=== PATIENT | female | born 1990 | race Caucasian/White ===

== ENCOUNTER → 2016-10-30 | Outpatient (CLI) | payer BC ==
[2016-10-30 17:21] LABS: CH 29.1; CHCM 33.7; HCT 35.5 % (34.0-46.0); HDW 2.93; MCH 29.4 pg (25.0-35.0); MCHC 33.9 g/dL (31.0-37.0); MCV 86.5 fL (80.0-100.0); Mean Platelet Volume 6.6; RDW 14.8 % (11.5-15.5); WBC 7.5 k/uL (3.8-10.6)
[2016-10-30 17:27] LABS: Glucose 86 mg/dL (74-99); Non-African American GFR(MDRD) >60 (>60 ml/min/1.73 sqM)
[2016-10-30 17:59] LABS: Hepatitis B Surface Ag Index 0.07
[2016-10-31 07:45] LABS: HIV-1/HIV-2 Ab Screen NONREAC (NON REAC)
--- NOTE | 2016-10-31 08:20 | US ---
EXAMINATION TYPE: US OB <= 14 wk fetus DATE OF EXAM: 10/30/2016 4:42 PM COMPARISON: NONE CLINICAL HISTORY: Z36 Comfirm Dates. EXAM PERFORMED: Transabdominal (TA) EXAM MEASUREMENTS: GESTATIONAL AGE / DATING Physician Established: not yet established Dates by LMP: (10 weeks/3 days) EDC: 05/25/17 Dates by First Scan: 1st scan today Dates by Current Scan for: (11 weeks/2 days) EDC: 05/19/17 MATERNAL ANATOMY Uterus: 12.6 x 6.6 x 9.4cm Right Ovary: not visualized Left Ovary: not visualized Post CDS / Adnexa: wnl GESTATION / SURVEY CRL: 4.5 (11 weeks/2 days) Yolk Sac (normal less than 6mm): 4mm Heart Rate: 170 bpm Rhythm: Normal IUP: Viable IUP Nuchal Translucency 10-14wks (normal less than 3mm): 1mm Date of LMP: 08/18/16 TECHNOLOGIST IMPRESSION: normal IUP IMPRESSION: Single viable intrauterine corresponding to ultrasound age of 11 weeks 2 days with estimate d date of delivery 19 May 2017
== END | disposition home or self-care (01) ==
LOC: RADUSWWP 16:16
PROVIDERS: ATTEND Obstetrics & Gynecology
DX: Z36 Encounter for antenatal screening of mother (principal); Z34.01 Encounter for supervision of normal first pregnancy, first trimester; Z3A.11 11 weeks gestation of pregnancy
CPT/HCPCS: 36415; 76801; 76813; 82565; 82947; 85027; 86762; 86780; 86850; 86900; 86901; 87340; 87389

== ENCOUNTER → 2016-11-14 | Outpatient (CLI) | payer BC ==
--- NOTE | 2016-11-14 17:36 | US ---
EXAMINATION TYPE: US OB <= 14 wk fetus DATE OF EXAM: 11/14/2016 5:06 PM COMPARISON: on PACS CLINICAL HISTORY: O76 abnormal or absent heart sounds. Unable to hear FHT's in office EXAM PERFORMED: Transabdominal (TA) EXAM MEASUREMENTS: GESTATIONAL AGE / DATING Physician Established: (13 weeks/4 days) EDC: 05/18/2017 Dates by Current Scan for: (13 weeks/3 days) EDC: 05/19/2017 MATERNAL ANATOMY Uterus: 15.0 x 9.9 x 8.0 cm Right Ovary: not seen due to overlying bowel Left Ovary: not seen due to overlying bowel Post CDS / Adnexa: no free fluid Presence of subchorionic bleed: no GESTATION / SURVEY CRL: 7.3 (13 weeks/3 days) MSD: not measured Yolk Sac (normal less than 6mm): not seen Heart Rate: 153 bpm Rhythm: Normal IUP: Viable IUP Nuchal Translucency 10-14wks (normal less than 3mm): 1.4 mm Live single IUP measuring 13 weeks 3 days with positive FHT's measuring 153 bpm IMPRESSION: The ultrasound gestational age is 13 weeks 3 days. There is satisfactory growth compared to 10/30/2016 . I see no complicating process.
== END | disposition home or self-care (01) ==
LOC: RADUSMAIN 16:37
PROVIDERS: ATTEND Obstetrics & Gynecology
DX: O76 Abnormality in fetal heart rate and rhythm complicating labor and delivery (principal); Z3A.13 13 weeks gestation of pregnancy
CPT/HCPCS: 76801; 76813

== ENCOUNTER → 2016-12-20 | Outpatient (CLI) | payer BC ==
[2016-12-21 11:23] LABS: Alpha Fetoprotein 61.8 ng/mL; B-HCG (M.O.M.) 1.38; Gestational Age (days) 4; Human Chorionic Gonadotropin 31.3 IU/mL; Inhibin A (M.O.M.) 1.06; Interpretation SeeBelow; Maternal Age at EDD (Yrs) 29
== END ==
LOC: LABWHC1 17:07
PROVIDERS: ATTEND Obstetrics & Gynecology
DX: Z34.01 Encounter for supervision of normal first pregnancy, first trimester (principal); Z3A.00 Weeks of gestation of pregnancy not specified
CPT/HCPCS: 36415; 82105; 82677; 84702; 86336

== ENCOUNTER → 2017-02-20 | Outpatient (CLI) | payer BC ==
[2017-02-20 09:43] LABS: CH 30.9; CHCM 34.4; HCT 35.4 % (34.0-46.0); HDW 3.46; HGB 12.3 gm/dL (11.4-16.0); MCH 31.4 pg (25.0-35.0); MCHC 34.7 g/dL (31.0-37.0); MCV 90.5 fL (80.0-100.0); Mean Platelet Volume 6.8; Poikilocytosis Slight; RBC 3.91 m/uL (3.80-5.40); RDW 14.5 % (11.5-15.5); WBC 7.5 k/uL (3.8-10.6)
== END | disposition home or self-care (01) ==
LOC: LABWHC1 08:09
PROVIDERS: ATTEND Obstetrics & Gynecology
DX: Z34.02 Encounter for supervision of normal first pregnancy, second trimester (principal)
CPT/HCPCS: 36415; 82950; 84439; 84443; 85027

== ENCOUNTER 2017-04-16 10:43 | Outpatient (CLI) | payer BC ==
[2017-04-16 10:58] VITALS: BP 121/64; PULSE 82; RESP 16; TEMP 97.9
--- NOTE | 2017-04-16 12:32 | US ---
EXAMINATION TYPE: US OB >= 14 wk fetus DATE OF EXAM: 04/16/2017 COMPARISON: 11/14/2016 CLINICAL HISTORY: Spotting, cramping TECHNIQUE: Transabdominal (TA) GESTATIONAL AGE / DATING Physician Established: (35 weeks/0 days) EDC: 05/21/2017 Dates by LMP: (35 weeks/0 days) EDC: 05/21/2017 Dates by First Scan: (35 weeks/2 days) EDC: 05/19/2017 Dates by Current Scan: (35 weeks/0 days) EDC: 05/21/2017 SURVEY IUP: Single PLACENTA: Anterior PREVIA: No Previa BLANCA: 13.3 cm Normal CERVICAL LENGTH (transabdominal: norm > 3.0cm): 3.8 cm BIOMETRY PRESENTATION: Vertex LIE: Longitudinal BPD: 8.46 cm 34 weeks / 1 days HC: 32.0 cm 36 weeks / 1 days AC: 31.5 cm 35 weeks / 3 days FL: 6.8 cm 35 weeks / 1 days ESTIMATED WEIGHT IN GRAMS: 2638 grams ESTIMATED WEIGHT IN LBS/OZS: 5 lbs. 13 oz. WEIGHT PERCENTAGE BASED ON ESTABLISHED DATES: 55.1% HC/AC: 1.02 Normal FL/AC: 21.71 Normal HEART RATE: 132 bpm RHYTHM: Normal Viable IUP, measurements congruent with dates. anatomy assessment not provided due to advanced gestational age. IMPRESSION: Viable IUP, measurements congruent with dates.
--- NOTE | 2017-04-16 17:45 | P.MSEPDOC ---
Presenting Problems - Arrival Data Date of Arrival on Unit: 04/16/17 Time of Arrival on Unit: 10:40 Mode of Transport: Portable - Complaint OB-Reason for Admission/Chief Complaint: Vaginal Bleeding Comment: spotting and cramping at 0000 last night Medical History - Information : 1 Para: 0 Term: 0 : 0 Abortions: Spontaneous or Elective: 0 Number of Living Children: 0 - Gestational Age Expected Date of Delivery: 05/21/17 Gestational Age by PETER (wks/days): 35 Weeks and 0 Days Review of Systems - Review of Systems Constitutional: No problems Breast: No problems ENT: No problems Cardiovascular: No problems Respiratory: No problems Gastrointestinal: No problems Genitourinary: No problems Musculoskeletal: No problems Neurological: No problems Skin: No problems Vital Signs - Temperature Temperature: 97.9 F Temperature Source: Temporal Artery Scan - Pulse Right Sitting Brachial Pulse Rate: 82 Pulse Assessment Method: Automatic Cuff - Respirations Respiratory Rate: 16 Oxygen Delivery Method: Room Air O2 Sat by Pulse Oximetry: 98 - Blood Pressure Right Arm Sitting Blood Pressure: 121/64 Blood Pressure Mean: 83 Blood Pressure Source: Automatic Cuff Medical Screen Scoring (Pre) - Cervical Exam Dilation: Exam Deferred Effacement: Exam Deferred - Uterine Contractions Frequency: N/A Duration: N/A Intensity: N/A - Maternal Vital Signs Maternal Temperature: N/A Maternal Blood Pressure: N/A Signs of Preeclampsia: N/A Maternal Respirations: N/A - Maternal Trauma Maternal Trauma: N/A - Assessment Baseline FHR: 130 Heart Rate - NICHD Category: Category I (Normal) = 0 Position: N/A Station: N/A - Total Score Total Score (Pre): 0 - Level of Risk Level of Risk: Low (0-5) Physician Notification (Post) - Physician Notified Physician Notified Date: 04/16/17 Physician Notified Time: 12:15 Physician/Practitioner Notified:: dr Charles New Order Received: Yes - Notification Comment Comment: ultrasound results reported. discharge home and follow up as scheduled. Disposition - Disposition OB Disposition: Discharge to home Discharge Date: 04/16/17 Discharge Time: 12:33 I agree with the RN Medical Screening Exam: Yes Physician's MSE Comment: Patient had no bleeding noted on speculum exam per RN. Patient also did not have any evidence of abruption on her ultrasound. No evidence of maternal or compromise. Will be discharged home follow up with me in 48 hours. Risk & Benefit of care provided described in d/c instruction: Yes Diagnosis: SPOTTING COMPLICATING , THIRD TRIMESTER
== END 2017-04-16 12:33 | disposition home or self-care (01) ==
LOC: FBPOP 10:43
PROVIDERS: ATTEND Obstetrics & Gynecology
DX: O26.853 Spotting complicating pregnancy, third trimester (principal); Z3A.35 35 weeks gestation of pregnancy
CPT/HCPCS: 59025; 76805; 99215

== ENCOUNTER 2017-05-20 16:20 | Inpatient (IN) | payer BC ==
[2017-05-20] MEDS ORDERED: DINOPROSTONE 10 MG INSERT.ER VAGINAL ONE (16:23)
[2017-05-20 16:45] VITALS: BMI 28.0
[2017-05-20] MEDS ORDERED: BUTORPHANOL 1 MG/ML 1 ML VIAL IV PRN (17:24)
--- NOTE | 2017-05-20 17:33 | P.HPOB ---
History of Present Illness H&P Date: 05/20/17 Chief Complaint: Elective induction of labor. This patient is a pleasant 27-year-old 1 para 0 female estimated date of confinement 05/21/2017 estimated gestational age 39-6/7 weeks who presents to labor and delivery for requested induction of labor. Patient's cervix is unfavorable and at this time we discussed options and she is requested two- stage induction of labor. Patient's care has been uncomplicated with the exception of significant lower back pain. Review of Systems Constitutional: Denies chills, Denies fever Ears, nose, mouth and throat: Denies headache, Denies sore throat Cardiovascular: Denies chest pain, Denies shortness of breath Respiratory: Denies cough Gastrointestinal: Reports heartburn Genitourinary: Reports pelvic pain, Reports Menstruation: Reports amenorrhea Musculoskeletal: Denies myalgias Neurological: Denies numbness, Denies weakness Past Medical History Past Medical History: No Reported History History of Any Multi-Drug Resistant Organisms: None Reported Past Surgical History: No Surgical Hx Reported Past Anesthesia/Blood Transfusion Reactions: No Reported Reaction Past Psychological History: No Psychological Hx Reported Smoking Status: Never smoker Past Alcohol Use History: None Reported Past Drug Use History: None Reported - Past Family History Father Family Medical History: Hypertension Mother Family Medical History: Hyperlipidemia Medications and Allergies Home Medications Medication Instructions Recorded Confirmed Type Pnv No.95/Ferrous Fum/Folic AC 1 each PO DAILY 04/16/17 05/20/17 History [ Multivitamin Tablet] Allergies Allergy/AdvReac Type Severity Reaction Status Date / Time No Known Allergies Allergy Verified 04/16/17 10:47 Exam - Vital Signs Vital signs: Vital Signs Temp Pulse Resp BP Pulse Ox 05/20/17 16:30 97.3 F L 80 16 125/73 97 Intake and Output 05/20/17 05/20/17 05/20/17 06:59 14:59 22:59 Other: Weight 78.925 kg Patient Weight 05/21/17 06:59 Weight 78.925 kg - OBG Physical Exam Abdomen: bowel sounds normal, no diffuse tenderness, no bruit present, no guarding noted, no hepatomegaly, no splenomegaly, no mass Vulva: both: normal Cervix: no lesion (Cervix is fingertip and thick.), no discharge Uterus: enlarged (Fundal height is 38 cm.) Results blood work shows she is O positive, rubella immune, RPR nonreactive, HIV nonreactive, hepatitis B is negative, Glucola was normal, group B strep was negative, ultrasounds have been normal, quad screen was negative as well. Assessment and Plan (1) Third trimester Narrative/Plan: This patient is a pleasant 27-year-old 1 para 0 female 39-6/7 weeks gestation who presents to labor and delivery for requested induction of labor. Due to the unfavorable cervix plan is to proceed with Cervidil induction area and patient does understand this slightly increases her risk of section and wishes to proceed. Status: Acute (2) Elective induction of labor planned Status: Acute
[2017-05-21] MEDS ORDERED: OXYTOCIN 10 UNIT/ML 1 ML VIAL IM PRN ×2 (03:42→05:02)
[2017-05-21 04:13] LABS: Basophils % (A) 0 %; CH 33.6; CHCM 36.3; Eosinophils # (A) 0.1 k/uL (0-0.7); Eosinophils % (A) 1 %; HCT 39.8 % (34.0-46.0); HDW 3.18; HGB 13.4 gm/dL (11.4-16.0); Luc # (Auto) 0.15; Luc % (Auto) 2; Lymphocytes # (A) 1.7 k/uL (1.0-4.8); Lymphocytes % (A) 18 %; MCH 31.5 pg (25.0-35.0); MCHC 33.7 g/dL (31.0-37.0); MCV 93.4 fL (80.0-100.0); Mean Platelet Volume 7.4; Monocytes # (A) 0.5 k/uL (0-1.0); Monocytes % (A) 6 %; Neutrophils % (A) 74 %; RBC 4.26 m/uL (3.80-5.40); RDW 15.9 % (11.5-15.5); WBC 9.4 k/uL (3.8-10.6); WBC (Perox) 9.51
[2017-05-21] MEDS ORDERED: TERBUTALINE 1 MG/ML VIAL SQ PRN (05:02)
[2017-05-21] MEDS ORDERED: CARBOPROST TROMETHAMINE 250 MCG/ML 1 ML AMP IM PRN (05:02)
[2017-05-21] MEDS ORDERED: OXYTOCIN 20 UNITS/1000 ML NS 1,000 ML IV SCH (05:02)
[2017-05-21] MEDS ORDERED: METHYLERGONOVINE 0.2 MG/ML 1 ML AMP IM PRN (05:02)
[2017-05-21] MEDS ORDERED: LIDOCAINE 1% (PF) 10 MG/ML (30 ML SDV) SQ PRN (05:02)
[2017-05-21] MEDS: LACTATED RINGERS 1,000 ML IV SCH ×3 (05:37→07:10)
[2017-05-21] MEDS ORDERED: fentaNYL (PF) 50 MCG/ML 5 ML AMP ONE (06:23)
[2017-05-21] MEDS ORDERED: SODIUM CHLORIDE 0.9% 100 ML BAG ONE (06:23)
[2017-05-21] MEDS ORDERED: BUPIVACAINE (PF) 0.25% 30 ML VIAL ONE (06:23)
[2017-05-21] MEDS ORDERED: BUPIVACAINE (PF) 0.25% 25 ML, fentaNYL (PF) 200 MCG in SODIUM CHLORIDE 0.9% 71 ML EPIDURAL ONE (06:41)
[2017-05-21] MEDS: PRENATAL VIT-IRON-FOLIC ACID 1 EACH CAP PO SCH (10:30)
--- NOTE | 2017-05-21 12:33 | P.PROBDLV ---
Vaginal Delivery Note - . Vaginal Delivery Note: Normal vaginal delivery viable female Apgars 8 and 9 delivery time is 0954 hrs. Please see dictated H&P for intimate details of this patient's admission. Brief summary is a pleasant 27-year-old 1 para 0 female 40-0/7 weeks gestation to labor and delivery requesting induction of labor. Patient has Cervidil placed last evening and she was 2-3 cm dilated this morning. Patient had artificial rupture membranes for clear fluid. Labor is induced with Pitocin and she does get an epidural for pain control. Labor progresses quickly and she pushes for approximately 20-30 minutes pushes the head to the perineum. After perineum is instructed 1% lidocaine and a midline episiotomy is made. We then have controlled delivery of the 's head over the perineum. Mouth and nares are bulb suctioned and there is no evidence of a nuchal cord. We then have deliver the anterior and posterior shoulder and rest this infant's body. This is a vigorous viable female infant Apgars are 8 and 9 delivery time was 0954 hours. After delivery of the infant the umbilical cords doubly clamped and cut appears to be trivascular. The placenta is then spontaneously delivered intact. Estimated blood loss is about 100 mL. Second- degree midline laceration is repaired with 3-0 Vicryl usual fashion in good reapproximation is noted. Counts are correct 3. There are no complications. and mother are stable delivery room.
[2017-05-21] MEDS ORDERED: IBUPROFEN 600 MG TAB PO PRN (20:05)
[2017-05-21] MEDS ORDERED: SENNOSIDES-DOCUSATE SODIUM 1 EACH TAB PO PRN (20:09)
--- NOTE | 2017-05-22 06:47 | P.PNOBGVD ---
Subjective - Subjective Patient reports: Reports appetite normal, Reports voiding normally, Reports pain well controlled, Reports ambulating normally : doing well Objective - Latest Vital Signs Latest vital signs: Vital Signs Temp Pulse Pulse Resp BP BP 05/21/17 16:00 98.3 F 64 16 136/89 05/21/17 12:15 71 16 165/85 05/21/17 11:45 65 16 157/76 05/21/17 11:15 76 16 159/77 05/21/17 11:00 76 16 160/77 05/21/17 10:45 75 16 159/84 05/21/17 10:30 76 16 159/80 05/21/17 10:15 81 81 16 167/85 Intake and Output 05/21/17 05/21/17 05/22/17 14:59 22:59 06:59 Intake Total 512.45 Output Total 100 Balance 412.45 Intake: Intake, IV Titration 512.45 Amount Oxytocin 20 Units/1000 ml 512.45 Ns 1,000 ml @ 1 MILLIUNIT/MIN 3 mls/hr IV .Q24H NELI Rx#:[id number] Output: Estimated Blood Loss 100 Other: # Voids 2 1 - Exam Lungs: bilateral: normal Chest: Normal S1, Normal S2 Extremities: Present: normal Abdomen: Present: normal appearance, soft Uterus: Present: normal, firm Assessment and Plan (1) Third trimester Narrative/Plan: day #1. Patient is resting without complaints and wishes to go home. Vital signs are stable and she is afebrile. Uterus is firm nontender she 's having normal lochia. My impression is a normal course. Plan is to continue routine care discharge home later today. Current Visit: Yes Status: Acute Code(s): Z34.93 - ENCNTR FOR SUPRVSN OF NORMAL PREG, UNSP, THIRD TRIMESTER SNOMED Code(s): 87395835 (2) Elective induction of labor planned Current Visit: Yes Status: Acute Code(s): FGN7833 - SNOMED Code(s): 013847243
--- NOTE | 2017-05-22 06:49 | P.DS ---
Providers Date of admission: 05/20/17 16:20 Expected date of discharge: 05/22/17 Attending physician: Prakash Charles Primary care physician: Stated None - Discharge Diagnosis(es) (1) Third trimester Current Visit: Yes Status: Acute (2) Elective induction of labor planned Current Visit: Yes Status: Acute Hospital Course: Please see dictated H&P for intimate details of this patient's admission. Brief summary is a pleasant 27-year-old 1 para 0 female 40 weeks gestation admitted for Cervidil induction of labor. Patient is admitted does go on to have a vaginal delivery viable female infant. Please see dictated delivery note. day #1 patient is without complaints wishes to go home discharge home follow up with me in 6 weeks. Procedures: Induction of labor and normal vaginal delivery Patient Condition at Discharge: Good Plan - Discharge Summary New Discharge Prescriptions: New Ibuprofen [Motrin] 600 mg PO QID PRN #40 tab PRN Reason: Moderate Pain No Action Pnv No.95/Ferrous Fum/Folic AC [ Multivitamin Tablet] 1 each PO DAILY Discharge Medication List Pnv No.95/Ferrous Fum/Folic AC [ Multivitamin Tablet] 1 each PO DAILY [History] Ibuprofen [Motrin] 600 mg PO QID PRN #40 tab 05/22/17 [Rx] Follow up Appointment(s)/Referral(s): Prakash Charles MD [STAFF PHYSICIAN] - 07/02/17 9:45 am Patient Instructions/Handouts: Vaginal Delivery (DC) Activity/Diet/Wound Care/Special Instructions: No intercourse or anything per vagina for 6 weeks. Please call if any fever, chills, excessive vaginal bleeding, and/or abdominal pain. Discharge Disposition: HOME SELF-CARE
[2017-05-22 09:50] VITALS: BP 122/67; PULSE 66; RESP 18; TEMP 98
[2017-05-22] MEDS: PRENATAL VIT-IRON-FOLIC ACID 1 EACH CAP PO SCH (11:43)
== END 2017-05-22 12:44 | disposition home or self-care (01) | DRG 775 ==
LOC: 4FBP 16:20
PROVIDERS: ADMIT Obstetrics & Gynecology; ATTEND Obstetrics & Gynecology
PROC: 3E033VJ Introduction of Other Hormone into Peripheral Vein, Percutaneous Approach (ICD-10-PCS; principal; 2017-05-20)
PROC: 3E0R3BZ Introduction of Anesthetic Agent into Spinal Canal, Percutaneous Approach (ICD-10-PCS; principal; 2017-05-20)
PROC: 10907ZC Drainage of Amniotic Fluid, Therapeutic from Products of Conception, Via Natural or Artificial Opening (ICD-10-PCS; principal; 2017-05-20)
PROC: 00HU33Z Insertion of Infusion Device into Spinal Canal, Percutaneous Approach (ICD-10-PCS; principal; 2017-05-20)
PROC: 3E0P7GC Introduction of Other Therapeutic Substance into Female Reproductive, Via Natural or Artificial Opening (ICD-10-PCS; principal; 2017-05-20)
PROC: 0W8NXZZ Division of Female Perineum, External Approach (ICD-10-PCS; 2017-05-21)
PROC: 10E0XZZ Delivery of Products of Conception, External Approach (ICD-10-PCS; 2017-05-21)
PROC: 0KQM0ZZ Repair Perineum Muscle, Open Approach (ICD-10-PCS; 2017-05-21)
DX: O70.1 Second degree perineal laceration during delivery (principal); Z37.0 Single live birth; O48.0 Post-term pregnancy; Z3A.40 40 weeks gestation of pregnancy; Z3A.39 39 weeks gestation of pregnancy
CPT/HCPCS: 85025; 88307

== ENCOUNTER 2020-03-17 10:28 | Inpatient (IN) | payer BC ==
--- NOTE | 2020-03-23 19:22 | P.HPOB ---
History of Present Illness H&P Date: 03/23/20 Chief Complaint: Postdates induction of labor This patient is a pleasant 30 yr female EDC 03/17/2020 estimated gestational age 41 weeks who presents for induction secondary to post dates. care has been uncomplicated. evaluation and testing has been normal. Review of Systems Genitourinary: Reports Menstruation: Reports amenorrhea Past Medical History Past Medical History: No Reported History Additional Past Medical History / Comment(s): 1st was 7# baby girl. History of Any Multi-Drug Resistant Organisms: None Reported Past Surgical History: No Surgical Hx Reported Past Anesthesia/Blood Transfusion Reactions: No Reported Reaction Past Psychological History: No Psychological Hx Reported Smoking Status: Never smoker Past Alcohol Use History: None Reported Past Drug Use History: None Reported - Past Family History Father Family Medical History: Hypertension Mother Family Medical History: Hyperlipidemia Medications and Allergies Home Medications Medication Instructions Recorded Confirmed Type Pnv No.95/Ferrous Fum/Folic AC 1 each PO DAILY 04/16/17 05/20/17 History [ Multivitamin Tablet] Ibuprofen [Motrin] 600 mg PO QID PRN #40 tab 05/22/17 Rx Allergies Allergy/AdvReac Type Severity Reaction Status Date / Time No Known Allergies Allergy Verified 06/04/19 09:51 Exam - OBG Physical Exam Abdomen: bowel sounds normal, no diffuse tenderness, no bruit present, no guarding noted, no hepatomegaly, no splenomegaly, no mass Vulva: both: normal Vagina: normal moisture, no discharge Cervix: no lesion (Cx is 3 cm in the office), no discharge Uterus: enlarged (Fundal height is 39 cm.) Results bloodwork: O positive, Rubella Immune, RPR-HepB neg, QUAD screen negative, GBS negative, Ultrasounds have been normal. Glucola 119 Assessment and Plan Assessment: This is a pleasant 30 yr old female estimated gestational age 41 weeks who presents to L&D for postdates induction of labor. Plan is induction of labor and anticipate . (1) 41 weeks gestation of Status: Acute Code(s): Z3A.41 - 41 WEEKS GESTATION OF SNOMED Code(s): 65714078 (2) Elective induction of labor planned Status: Acute Code(s): FCN1456 - SNOMED Code(s): 246604884
[2020-03-24] MEDS ORDERED: OXYTOCIN 30 UNITS/500 ML NS 30 UNIT in SALINE 1 500ML.BAG IV SCH (05:57)
[2020-03-24] MEDS ORDERED: CARBOPROST TROMETHAMINE 250 MCG/ML 1 ML AMP IM PRN (05:57)
[2020-03-24] MEDS ORDERED: METHYLERGONOVINE 0.2 MG/ML 1 ML AMP IM PRN (05:57)
[2020-03-24] MEDS ORDERED: LIDOCAINE 0.5% (PF) 5 MG/ML (50 ML SDV) SQ PRN (05:57)
[2020-03-24] MEDS ORDERED: OXYTOCIN 10 UNIT/ML 1 ML VIAL IM PRN (05:57)
[2020-03-24] MEDS ORDERED: TERBUTALINE 1 MG/ML VIAL SQ PRN (05:57)
[2020-03-24] MEDS: LACTATED RINGERS 1,000 ML IV SCH ×2 (06:12→08:48)
[2020-03-24 06:16] LABS: Basophils % (A) 0 %; Eosinophils # (A) 0.2 k/uL (0-0.7); Eosinophils % (A) 2 %; HCT 41.6 % (34.0-46.0); HGB 14.4 gm/dL (11.4-16.0); Lymphocytes # (A) 1.8 k/uL (1.0-4.8); Lymphocytes % (A) 20 %; MCH 32.7 pg (25.0-35.0); MCHC 34.6 g/dL (31.0-37.0); MCV 94.5 fL (80.0-100.0); Mean Platelet Volume 7.6; Monocytes # (A) 0.4 k/uL (0-1.0); Monocytes % (A) 5 %; Neutrophils # (A) 6.5 k/uL (1.3-7.7); Neutrophils % (A) 72 %; Platelet Count 244 k/uL (150-450); RDW 13.4 % (11.5-15.5)
[2020-03-24] MEDS ORDERED: ROPIVACAINE 5MG/ML 20ML VIAL ONE (08:47)
[2020-03-24] MEDS ORDERED: fentaNYL (PF) 50 MCG/ML 5 ML AMP ONE (08:47)
[2020-03-24] MEDS ORDERED: SODIUM CHLORIDE 0.9% 100 ML BAG ONE (08:47)
[2020-03-24] MEDS ORDERED: diphenhydrAMINE 50 MG/ML 1 ML VIAL IVP PRN (11:29)
[2020-03-24] MEDS ORDERED: bisacodyL 10 MG SUPP RECTAL PRN (11:29)
[2020-03-24] MEDS ORDERED: IBUPROFEN 600 MG TAB PO PRN (11:29)
[2020-03-24] MEDS ORDERED: diphenhydrAMINE 25 MG CAP PO PRN (11:29)
[2020-03-24] MEDS ORDERED: BENZOCAINE/MENTHOL SPRAY 1 GM/SPRAY AEROSOL TOPICAL PRN (11:29)
[2020-03-24] MEDS ORDERED: LANOLIN CREAM 5 GM TUBE TOPICAL PRN (11:29)
[2020-03-24] MEDS ORDERED: HYDROCORTISONE 2.5% RECTAL CREAM 30 GM TUBE RECTAL PRN (11:29)
[2020-03-24] MEDS ORDERED: OXYTOCIN 20 UNITS/1000 ML NS 1,000 ML IV SCH (11:29)
[2020-03-24] MEDS ORDERED: ZOLPIDEM 5 MG TAB PO PRN (11:29)
[2020-03-24] MEDS ORDERED: SIMETHICONE 80 MG CHEWABLE PO PRN (11:29)
[2020-03-24] MEDS ORDERED: ACETAMINOPHEN TAB 325 MG TAB PO PRN (11:29)
[2020-03-24] MEDS: SENNOSIDES-DOCUSATE SODIUM 1 EACH TAB PO SCH ×2 (12:13→19:59)
--- NOTE | 2020-03-24 18:16 | P.PROBDLV ---
Vaginal Delivery Note - . Vaginal Delivery Note: Normal vaginal delivery viable female Apgars 9 and 9 delivery time is 1122 hrs. Please see dictated H&P for intimate details of this patient's admission. Brief summary this is a pleasant 30-year-old 2 para 1 female 41-0/7 weeks gestation who is admitted to labor and delivery for postdates induction of labor. On admission patient is approximately 3 cm dilated has artificial rupture membranes for light meconium-stained fluid. heart tones are c ategory 1. Labor is induced with Pitocin per protocol. Patient's labor progresses and she does get an epidural for pain control. She gets to complete pushes the head to the perineum. Posterior perineum is supported and we have controlled delivery of the infant's head over the intact perineum. Mouth and nares are bulb suctioned. Of note the sample tester is present for delivery secondary to meconium. With gentle downward traction we then have deliver the anterior and posterior shoulder and rest this 's body. This is a vigorous viable female infant Apgars are 9 and 9 delivery time is 1122 hrs. is late on the mother's abdomen. After the umbilical cord is done pulsating is then doubly clamped and cut. It appears to be trivascular. The placenta is then spontaneously delivered intact. Estimated blood loss is approximately 100 mL. Inspection of the perineum shows a first-degree posterior laceration is repaired with 3-0 Vicryl in the usual fashion excellent reapproximation is noted. All counts correct 3. There are no complications. Infant and mother are stable delivery room.
[2020-03-25 04:04] VITALS: PULSE 70
--- NOTE | 2020-03-25 06:20 | P.PNOBGVD ---
Subjective - Subjective Patient reports: Reports appetite normal, Reports voiding normally, Reports pain well controlled, Reports ambulating normally : doing well Objective - Latest Vital Signs Latest vital signs: Vital Signs Temp Pulse Resp BP BP Pulse Ox 03/25/20 04:00 98.2 F 70 18 113/75 98 03/25/20 00:00 98.2 F 71 18 116/67 100 03/24/20 20:00 98.0 F 80 18 115/76 96 03/24/20 16:00 98.3 F 76 18 120/77 03/24/20 13:30 97.4 F L 89 18 115/74 03/24/20 13:00 96.9 F L 83 18 131/73 03/24/20 12:30 97.8 F 87 18 135/76 03/24/20 12:15 71 136/79 03/24/20 12:00 97.7 F 75 18 135/70 03/24/20 11:45 97.3 F L 81 18 132/65 03/24/20 11:30 97.8 F 86 18 138/66 Intake and Output 03/24/20 03/24/20 03/25/20 14:59 22:59 06:59 Other: Voiding Method Toilet # Voids 1 1 1 - Exam Lungs: bilateral: normal Chest: Normal S1, Normal S2 Extremities: Present: normal Abdomen: Present: normal appearance, soft Uterus: Present: normal, firm Assessment and Plan Assessment: day #1. Patient is without complaints and wishes to go home. Vital signs are stable she's afebrile. Uterus is firm nontender she's having normal lochia. My impression is a normal course. Plan is to continue routine care and discharge home later today (1) 41 weeks gestation of Current Visit: No Status: Acute Code(s): Z3A.41 - 41 WEEKS GESTATION OF SNOMED Code(s): 24002761 (2) Elective induction of labor planned Current Visit: No Status: Acute Code(s): [id number] - SNOMED Code(s): 130885134
--- NOTE | 2020-03-25 06:24 | P.DS ---
Providers Date of admission: 03/24/20 05:45 Expected date of discharge: 03/25/20 Attending physician: Prakash Charles Primary care physician: Stated None - Discharge Diagnosis(es) (1) 41 weeks gestation of Current Visit: No Status: Acute (2) Elective induction of labor planned Current Visit: No Status: Acute Hospital Course: Please see dictated H&P for intimate details of this patient's admission. Brief summary this is a pleasant 30-year-old 2 para 1 female estimated gestational age 41 weeks who presented to labor and delivery for induction of labor. Patient went on have a vaginal delivery viable female . Please see dictated delivery note. day #1 patient's felt be stable for discharge home follow up with me in 6 weeks Procedures: Induction of labor and normal vaginal delivery Patient Condition at Discharge: Good Plan - Discharge Summary New Discharge Prescriptions: New Ibuprofen [Motrin] 600 mg PO Q6HR PRN #40 tab PRN Reason: Mild Pain Or Fever >= 100.5 No Action Pnv No.95/Ferrous Fum/Folic AC [ Multivitamin Tablet] 1 each PO DAILY Discharge Medication List Pnv No.95/Ferrous Fum/Folic AC [ Multivitamin Tablet] 1 each PO DAILY 04/16/17 [History] Ibuprofen [Motrin] 600 mg PO Q6HR PRN #40 tab 03/25/20 [Rx] Follow up Appointment(s)/Referral(s): Prakash Charles MD [STAFF PHYSICIAN] - 05/05/20 2:00 pm Patient Instructions/Handouts: Vaginal Delivery (DC) Activity/Diet/Wound Care/Special Instructions: No intercourse or anything per vagina for 6 weeks. Please call if any fever, chills, excessive vaginal bleeding, and/or abdominal pain. Discharge Disposition: HOME SELF-CARE
[2020-03-25 10:36] VITALS: BP 132/80; RESP 16; TEMP 98.3
== END 2020-03-25 13:00 | disposition home or self-care (01) | DRG 807 ==
LOC: 4FBP 03-24 05:45
PROVIDERS: ADMIT Obstetrics & Gynecology; ATTEND Obstetrics & Gynecology
PROC: 10E0XZZ Delivery of Products of Conception, External Approach (ICD-10-PCS; principal; 2020-03-24)
PROC: 10907ZC Drainage of Amniotic Fluid, Therapeutic from Products of Conception, Via Natural or Artificial Opening (ICD-10-PCS; principal; 2020-03-24)
PROC: 3E033VJ Introduction of Other Hormone into Peripheral Vein, Percutaneous Approach (ICD-10-PCS; principal; 2020-03-24)
PROC: 3E0R3BZ Introduction of Anesthetic Agent into Spinal Canal, Percutaneous Approach (ICD-10-PCS; principal; 2020-03-24)
PROC: 00HU33Z Insertion of Infusion Device into Spinal Canal, Percutaneous Approach (ICD-10-PCS; principal; 2020-03-24)
DX: O48.0 Post-term pregnancy (principal); Z37.0 Single live birth; Z3A.41 41 weeks gestation of pregnancy; Z82.49 Family history of ischemic heart disease and other diseases of the circulatory system; Z83.49 Family history of other endocrine, nutritional and metabolic diseases; Z79.899 Other long term (current) drug therapy; O77.0 Labor and delivery complicated by meconium in amniotic fluid
CPT/HCPCS: 85025; 86850; 86900; 86901; 88307

== ENCOUNTER → 2022-11-14 | Outpatient (CLI) | payer BC ==
--- NOTE | 2022-11-14 11:59 | XR ---
EXAM TYPE: LUMBAR SPINE X RAY SERIES COMPARISON: NONE HISTORY: Pain TECHNIQUE: 3 views are submitted. FINDINGS: Alignment is anatomic. The pedicles are intact. The transverse processes are intact. There is hype rtrophic and degenerative changes L3-4, L4-5 and L5-S1. Slight curvature of the spine. IMPRESSION: 1. Multilevel degenerative disc disease.
== END | disposition home or self-care (01) ==
LOC: RADXRMAIN 11:22
PROVIDERS: ATTEND Nurse Practitioner Family
DX: M51.16 Intervertebral disc disorders with radiculopathy, lumbar region (principal)
CPT/HCPCS: 72100

== ENCOUNTER 2023-06-26 16:09 | Emergency (ER) | payer SELFPAY ==
[2023-06-26] MEDS ORDERED: SODIUM CHLORIDE 0.9% 500 ML 500 ML IV STA (16:31)
[2023-06-26] MEDS ORDERED: MAG HYDROX/AL HYDROX/SIMETH 30 ML, HYOSCYAMINE ELIXIR 10 ML, LIDOCAINE VISCOUS 2% 10 ML PO STA ×3 (16:39)
[2023-06-26] MEDS ORDERED: FAMOTIDINE 20 MG/2 ML VIAL IV STA (16:39)
[2023-06-26] MEDS ORDERED: MECLIZINE 12.5 MG TAB PO STA (16:39)
[2023-06-26 16:55] LABS: Basophils % (A) 0 %; Eosinophils % (A) 0 %; HCT 41.8 % (34.0-46.0); HGB 14.5 gm/dL (11.4-16.0); Lymphocytes # (A) 0.8 k/uL (1.0-4.8); Lymphocytes % (A) 8 %; MCH 30.4 pg (25.0-35.0); MCHC 34.8 g/dL (31.0-37.0); MCV 87.4 fL (80.0-100.0); Mean Platelet Volume 6.9; Monocytes # (A) 0.2 k/uL (0-1.0); Monocytes % (A) 2 %; Neutrophils # (A) 8.2 k/uL (1.3-7.7); Neutrophils % (A) 89 %; Platelet Count 332 k/uL (150-450); RBC 4.78 m/uL (3.80-5.40); RDW 12.8 % (11.5-15.5); WBC 9.3 k/uL (3.8-10.6)
--- NOTE | 2023-06-26 17:02 | XR ---
EXAMINATION TYPE: XR chest 2V DATE OF EXAM: 06/26/2023 4:57 PM CLINICAL INDICATION:Female, 33 years old with history of Chest Pain; [facility] COMPARISON: Chest radiographs from 01/26/2015 TECHNIQUE: XR chest 2V Frontal and lateral views of the chest. FINDINGS: Lungs/Pleura: There is no evidence of pleural effusion, focal consolidation, or pneumothorax. Pulmonary vascularity: Unremarkable. Heart/mediastinum: Cardiomediastinal silhouette is unremarkable. Musculoskeletal: No acute osseous pathology. IMPRESSION: No acute cardiopulmonary disease/process.
[2023-06-26 17:07] LABS: ALT 17 U/L (4-34); AST 22 U/L (14-36); African American GFR (CKD) >90 (>60 ml/min/1.73 sqM); Albumin 5.2 g/dL (3.5-5.0); Alkaline Phosphatase 58 U/L (38-126); Anion Gap 12 mmol/L; Blood Urea Nitrogen 9 mg/dL (7-17); Calcium 10.5 mg/dL (8.4-10.2); Carbon Dioxide 25 mmol/L (22-30); Chloride 104 mmol/L (98-107); Glucose 112 mg/dL (74-99); Magnesium 1.9 mg/dL (1.6-2.3); Non-African American GFR(CKD) >90 (>60 ml/min/1.73 sqM); Potassium 3.8 mmol/L (3.5-5.1); Sodium 141 mmol/L (137-145); Total Bilirubin 0.7 mg/dL (0.2-1.3); Total Protein 8.3 g/dL (6.3-8.2)
[2023-06-26 17:13] VITALS: RESP 17; TEMP 98.8
[2023-06-26 17:13] LABS: Partial Thromboplastin Time 24.3 sec (22.0-30.0); Prothrombin Time 10.9 sec (10.0-12.5)
[2023-06-26 17:42] LABS: Appearance,Urine Clear (Clear); Bacteria,Urine Rare /hpf; Bilirubin,Urine Negative (Negative); Blood,Urine Negative (Negative); Color,Urine Colorless; Glucose,Urine (UA) Negative (Negative); Ketones,Urine Negative (Negative); Leukocyte Esterase,Urine Trace (Negative); Nitrite,Urine Negative (Negative); Protein,Urine Negative (Negative); RBC,Urine 1 /hpf (0-5); Specific Gravity,Urine 1.006 (1.001-1.035); Squamous Epithelial Cell,Urine 2 /hpf (0-4); Urobilinogen,Urine <2.0 mg/dL (<2.0); WBC,Urine 2 /hpf (0-5)
[2023-06-26] MEDS ORDERED: LORazepam 2 MG/ML INJ IV STA (17:55)
--- NOTE | 2023-06-26 18:01 | ED ---
General Adult HPI - General Chief complaint: Chest Pain Stated complaint: Chest Pain,right arm numbness Time Seen by Provider: 06/26/23 16:23 Source: patient Mode of arrival: ambulatory Limitations: no limitations - History of Present Illness Initial comments: 33-year-old female presenting with chief complaint of chest pain. Patient describes it as a chest tightness and states "I feel like I have to burp". The discomfort lies mainly in the inferior portion of the chest and upper epigastric portion of the abdomen. Patient states that symptoms started 4 days ago. Patient was working out and states that she exerted herself a bit too much, she had one episode of vomiting and proceeded to rest. On Saturday she had persistent symptoms and was seen at urgent care, she was diagnosed with a sinus infection and started on steroids. Patient states that she has continued to have this chest tightness as well as some intermittent dizziness and nausea. She states that today she was having some tingling in the right arm. No lower extremity swelling. No weakness. No shortness of breath. No recent surgery or travel. Patient states that she has been under a lot of stress recently. - Related Data Home Medications Medication Instructions Recorded Confirmed Fluticasone Nasal [place] [Flonase 1 - 2 spr EA NOSTRIL BID PRN 06/26/23 06/26/23 Nasal [place]] predniSONE [Deltasone] 20 mg PO DAILY 06/26/23 06/26/23 Previous Rx's Medication Instructions Recorded Pantoprazole Sodium [Protonix] 20 mg PO DAILY #10 tab 06/26/23 Allergies Allergy/AdvReac Type Severity Reaction Status Date / Time No Known Allergies Allergy Verified 06/26/23 18:56 Review of Systems ROS Statement: Those systems with pertinent positive or pertinent negative responses have been documented in the HPI. ROS Other: All systems not noted in ROS Statement are negative. Past Medical History Past Medical History: No Reported History Additional Past Medical History / Comment(s): 1st was 7# baby girl. History of Any Multi-Drug Resistant Organisms: None Reported Past Surgical History: No Surgical Hx Reported Additional Past Surgical History / Comment(s): E[place] tooth extraction Past Anesthesia/Blood Transfusion Reactions: No Reported Reaction Past Psychological History: No Psychological Hx Reported Smoking Status: Never smoker Past Alcohol Use History: Occasional Past Drug Use History: None Reported - Past Family History Father Family Medical History: Hypertension Mother Family Medical History: Hyperlipidemia General Exam Limitations: no limitations General appearance: alert, in no apparent distress Head exam: Present: atraumatic, normocephalic, normal inspection Eye exam: Present: normal appearance, EOMI. Absent: scleral icterus, periorbital swelling Neck exam: Present: normal inspection, full ROM Respiratory exam: Present: normal lung sounds bilaterally. Absent: respiratory distress, wheezes, rales, rhonchi, stridor Cardiovascular Exam: Present: regular rate, normal rhythm, normal heart sounds. Absent: systolic murmur, diastolic murmur, rubs, gallop, clicks Extremities exam: Absent: pedal edema Neurological exam: Present: alert, oriented X3 Psychiatric exam: Present: normal affect, normal mood Skin exam: Present: warm, dry, intact, normal color. 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 AR interval 123. QRS 112. QT 370. QTC 413. No ST deviation. Medical Decision Making - Medical Decision Making Was pt. sent in by a medical professional or institution (, PA, MITIGATION SUPERVISOR, urgent care, hospital, or retirement...) When possible be specific @ -No Did you speak to anyone other than the patient for history (EMS, parent, family, police, friend...)? What history was obtained from this source @ -No Did you review nursing and triage notes (agree or disagree)? Why? @ -I reviewed and agree with nursing and triage notes Were old charts reviewed (outside hosp., previous admission, EMS record, old EKG, old radiological studies, urgent care reports/EKG's, retirement records)? Report findings @ -No old charts were reviewed Differential Diagnosis (chest pain, altered mental status, abdominal pain women, abdominal pain men, vaginal bleeding, weakness, fever, dyspnea, syncope, headache, dizziness, GI bleed, back pain, seizure, CVA, palpatations, mental health, musculoskeletal)? @ -MDM Differential Chest Pain: Stable Angina, Unstable Angina, STEMI, NSTEMI Aortic Dissection, Pneumothorax, Musculoskeletal, Esophageal Spasm GERD, Cholecystitis, Pancreatitis, Zoster This is not meant to be an all-inclusive list. EKG interpreted by me (3pts min.). @ -As above X-rays interpreted by me (1pt min.). @ -Chest X-ray shows no acute process CT interpreted by me (1pt min.). @ -None done U/S interpreted by me (1pt. min.). @ -None done What testing was considered but not performed or refused? (CT, X-rays, U/S, labs)? Why? @ -None What meds were considered but not given or refused? Why? @ -None Did you discuss the management of the patient with other professionals (professionals i.e. , PA, MITIGATION SUPERVISOR, lab, RT, psych nurse, director of social media marketing, hydraulic plumber, teacher, risk officer, director of casework)? Give summary @ -No Was smoking cessation discussed for >3mins.? @ -No Was critical care preformed (if so, how long)? @ -No Were there social determinants of health that impacted care today? How? (Homelessness, low income, unemployed, alcoholism, drug addiction, transportation, low edu. Level, literacy, decrease access to med. care, [facility], rehab)? @ -No Was there de-escalation of care discussed even if they declined (Discuss DNR or withdrawal of care, Hospice)? DNR status @ -No What co-morbidities impacted this encounter? (DM, HTN, Smoking, COPD, CAD, Cancer, CVA, ARF, Chemo, Hep., AIDS, mental health diagnosis, sleep apnea, morbid obesity)? @ -None Was patient admitted / discharged? Hospital course, mention meds given and route, prescriptions, significant lab abnormalities, going to OR and other pertinent info. @ -33-year-old female presenting with chief complaint of chest tightness as well as intermittent dizziness. History and physical examination are conducted. Lab work requires no action. EKG shows no ischemic changes. Chest x-ray shows no acute process. Patient is treated with IV fluids, Pepcid, GI cocktail, and Ativan. On reassessment she reports improvement in her symptoms. Symptoms likely attributed to a combination of gastritis and anxiety. Patient is educated on today's findings and management at home. Follow-up with PCP. Report back to ER with any new or worsening symptoms. Discussed return parameters and answered all questions. Patient conveyed verbal understanding and agreed to the plan. I discussed this case in detail with my attending Dr. Stuart Undiagnosed new problem with uncertain prognosis? @ -No Drug Therapy requiring intensive monitoring for toxicity (Heparin, Nitro, Insulin, Cardizem)? @ -No Were any procedures done? @ -No Diagnosis/symptom? @ -Anxiety, gastritis Acute, or Chronic, or Acute on Chronic? @ -Acute Uncomplicated (without systemic symptoms) or Complicated (systemic symptoms)? @ -Uncomplicated Side effects of treatment? @ -No Exacerbation, Progression, or Severe Exacerbation? @ -No Poses a threat to life or bodily function? How? (Chest pain, [place], HI, pneumonia, PE, COPD, DKA, ARF, appy, cholecystitis, CVA, Diverticulitis, Homicidal, Suicidal, threat to staff... and all critical care pts) @ -No - Lab Data Result diagrams: 06/26/23 16:33 06/26/23 16:33 Lab Results 06/26/23 06/26/23 06/26/23 Range/Units 16:33 16:33 16:33 WBC 9.3 (3.8-10.6) k/uL RBC 4.78 (3.80-5.40) m/uL Hgb 14.5 (11.4-16.0) gm/dL Hct 41.8 (34.0-46.0) % MCV 87.4 (80.0-100.0) fL MCH 30.4 (25.0-35.0) pg MCHC 34.8 (31.0-37.0) g/dL RDW 12.8 (11.5-15.5) % Plt Count 332 (150-450) k/uL MPV 6.9 Neutrophils % 89 % Lymphocytes % 8 % Monocytes % 2 % Eosinophils % 0 % Basophils % 0 % Neutrophils # 8.2 H (1.3-7.7) k/uL Lymphocytes # 0.8 L (1.0-4.8) k/uL Monocytes # 0.2 (0-1.0) k/uL Eosinophils # 0.0 (0-0.7) k/uL Basophils # 0.0 (0-0.2) k/uL PT 10.9 (10.0-12.5) sec INR 1.0 (<1.2) APTT 24.3 (22.0-30.0) sec Sodium (137-145) mmol/L Potassium (3.5-5.1) mmol/L Chloride (98-107) mmol/L Carbon Dioxide (22-30) mmol/L Anion Gap mmol/L BUN (7-17) mg/dL Creatinine (0.52-1.04) mg/dL Est GFR (CKD-EPI)AfAm (>60 ml/min/1.73 sqM) Est GFR (CKD-EPI)NonAf (>60 ml/min/1.73 sqM) Glucose (74-99) mg/dL Calcium (8.4-10.2) mg/dL Magnesium (1.6-2.3) mg/dL Total Bilirubin (0.2-1.3) mg/dL AST (14-36) U/L ALT (4-34) U/L Alkaline Phosphatase (38-126) U/L Troponin I (0.000-0.034) ng/mL Total Protein (6.3-8.2) g/dL Albumin (3.5-5.0) g/dL Urine Color Colorless Urine Appearance Clear (Clear) Urine pH 7.0 (5.0-8.0) Ur Specific Gray 1.006 (1.001-1.035) Urine Protein Negative (Negative) Urine Glucose (UA) Negative (Negative) Urine Ketones Negative (Negative) Urine Blood Negative (Negative) Urine Nitrite Negative (Negative) Urine Bilirubin Negative (Negative) Urine Urobilinogen <2.0 (<2.0) mg/dL Ur Leukocyte Esterase Trace H (Negative) Urine RBC 1 (0-5) /hpf Urine WBC 2 (0-5) /hpf Ur Squamous Epith Cells 2 (0-4) /hpf Urine Bacteria Rare H (None) /hpf Urine HCG, Qual (Not Detectd) 06/26/23 06/26/23 06/26/23 Range/Units 16:33 16:33 16:33 WBC (3.8-10.6) k/uL RBC (3.80-5.40) m/uL Hgb (11.4-16.0) gm/dL Hct (34.0-46.0) % MCV (80.0-100.0) fL MCH (25.0-35.0) pg MCHC (31.0-37.0) g/dL RDW (11.5-15.5) % Plt Count (150-450) k/uL MPV Neutrophils % % Lymphocytes % % Monocytes % % Eosinophils % % Basophils % % Neutrophils # (1.3-7.7) k/uL Lymphocytes # (1.0-4.8) k/uL Monocytes # (0-1.0) k/uL Eosinophils # (0-0.7) k/uL Basophils # (0-0.2) k/uL PT (10.0-12.5) sec INR (<1.2) APTT (22.0-30.0) sec Sodium 141 (137-145) mmol/L Potassium 3.8 (3.5-5.1) mmol/L Chloride 104 (98-107) mmol/L Carbon Dioxide 25 (22-30) mmol/L Anion Gap 12 mmol/L BUN 9 (7-17) mg/dL Creatinine 0.63 (0.52-1.04) mg/dL Est GFR (CKD-EPI)AfAm >90 (>60 ml/min/1.73 sqM) Est GFR (CKD-EPI)NonAf >90 (>60 ml/min/1.73 sqM) Glucose 112 H (74-99) mg/dL Calcium 10.5 H (8.4-10.2) mg/dL Magnesium 1.9 (1.6-2.3) mg/dL Total Bilirubin 0.7 (0.2-1.3) mg/dL AST 22 (14-36) U/L ALT 17 (4-34) U/L Alkaline Phosphatase 58 (38-126) U/L Troponin I <0.012 (0.000-0.034) ng/mL Total Protein 8.3 H (6.3-8.2) g/dL Albumin 5.2 H (3.5-5.0) g/dL Urine Color Urine Appearance (Clear) Urine pH (5.0-8.0) Ur Specific Gray (1.001-1.035) Urine Protein (Negative) Urine Glucose (UA) (Negative) Urine Ketones (Negative) Urine Blood (Negative) Urine Nitrite (Negative) Urine Bilirubin (Negative) Urine Urobilinogen (<2.0) mg/dL Ur Leukocyte Esterase (Negative) Urine RBC (0-5) /hpf Urine WBC (0-5) /hpf Ur Squamous Epith Cells (0-4) /hpf Urine Bacteria (None) /hpf Urine HCG, Qual Not Detected (Not Detectd) Disposition Clinical Impression: Anxiety, Gastritis Disposition: HOME SELF-CARE Condition: Good Instructions (If sedation given, give patient instructions): Chest Pain (ED), Gastritis (ED), Anxiety (ED) Additional Instructions: Follow-up with PCP. Report back to ER with any new or worsening symptoms. Take medication as prescribed. Prescriptions: Pantoprazole Sodium [Protonix] 20 mg PO DAILY #10 tab Is patient prescribed a controlled substance at d/c from ED?: No Referrals: Veda Suarez MD [Primary Care Provider] - 1-2 days Time of Disposition: 18:42
[2023-06-26 18:22] VITALS: BP 128/77; PULSE 86
== END 2023-06-26 18:52 | disposition home or self-care (01) ==
LOC: EC 16:09
DX: K29.70 Gastritis, unspecified, without bleeding (principal); F41.9 Anxiety disorder, unspecified
CPT/HCPCS: 36415; 93005; 80053; 83735; 84484; 85025; 85610; 85730; 81001; 81025; 71046; 99285; 96374; 96375; J2060; J3490

== ENCOUNTER → 2023-09-19 | Outpatient (CLI) | payer BC ==
--- NOTE | 2023-09-19 11:09 | CA ---
Stress Echo Report Nesha Jackson Age: 33 Gender: F : 1990 Exam Date: 09/19/2023 09:22 Exam Location: [place] Stress Ht (in): 66 Wt (lb): 140 Ordering Physician: Rosales Tierney MD Referring Physician: Wanda Anna Field Collector: Howard Gutierrez Technologist Shakira León DAI Procedure CPT: Indication: R07.9 CHEST PAIN ICD-9 Codes: Rhythm: Patient History: Cardiac Medications: Medications in past 24 hours: Contrast: N/A Stress Results Protocol: Glen Total dose(mL): NA Exercise Duration (min:sec): 12:[address] Depression (mm): Angina Score: Saldivar Score: METS: 12.3 Resting HR: 106 Resting BP: 116 / 67 Peak HR: 172 Peak BP: 188 / 80 Max Predicted HR: 185 93 % Max Predicted HR Target HR: 157 Double Product: [id number] Stress Summary: BP Response: Reason for Termination: MAX EXERTION/TARGET HR Cardiac Symptoms: NO SYMPTOMS ECG Analysis Resting ECG: Normal sinus rhythm, Right bundle branch block Stress ECG: No abnormal ST/T wave changes with exercise Arrhythmia: None Echo Analysis Resting Echo: Normal resting echocardiogram. Peak Echo Analysis: Normal treadmill stress echocardiogram. MEASUREMENTS (Male/Female) Normal Values CONCLUSIONS 1. Good exercise tolerance with normal electrocardiographic response to exercise 2. Normal stress echocardiogram with no evidence of stress induced ischemia Dr. Pattie Moreno MD (Electronically Signed) Final Date: 19 September 2023 11:08
== END | disposition home or self-care (01) ==
LOC: RADNMMAIN 08:58
PROVIDERS: ATTEND Internal Medicine Geriatric Medicine
DX: I45.19 Other right bundle-branch block (principal); R07.9 Chest pain, unspecified
CPT/HCPCS: 93351

== ENCOUNTER → 2023-10-18 | Outpatient (CLI) | payer BC ==
--- NOTE | 2023-10-21 20:10 | MM ---
Reason for Exam: Screening (asymptomatic). Baseline mammogram. Patient History: Menarche at age 12. First Full-Term at age 27. Last menstrual period: 10/03/2023 Risk Values: Susie 5 year model risk: 0.3%. NCI Lifetime model risk: 10.4%. Prior Study Comparison: Patient's first Mammogram. Tissue Density: The breasts are heterogeneously dense, which may obscure small masses. Findings: Analyzed By CAD. There is no suspicious group of microcalcifications or new suspicious mass in either breast. Overall Assessment: Negative, BI-RAD 1 Management: Screening Mammogram of both breasts in 1 year. . Patient should continue monthly self-breast exams. A clinical breast exam by your physician is recommended on an annual basis. This exam should not preclude additional follow-up of suspicious palpable abnormalities. Note on Susie scores and lifetime risk: 1. A Susie score greater than 3% is considered moderate risk. If this is the case, consider specialist referral to assess eligibility for a risk reducing agent. 2. If overall lifetime risk for the development of breast cancer is 20% or higher, the patient may qualify for future screening with alternating mammogram and breast MRI. Electronically signed and approved by: Nona Moncada M.D. Radiologist
== END | disposition home or self-care (01) ==
LOC: RADMAMWWP 08:53
PROVIDERS: ATTEND Obstetrics & Gynecology
DX: Z12.31 Encounter for screening mammogram for malignant neoplasm of breast (principal)
CPT/HCPCS: 77063; 77067

== ENCOUNTER → 2023-10-28 | Outpatient (CLI) | payer BC ==
--- NOTE | 2023-10-28 12:14 | MR ---
EXAMINATION TYPE: MR brain and iac wo/w con DATE OF EXAM: 10/28/2023 8:32 AM CLINICAL INDICATION:Female, 33 years old with history of R42 dizziness R94.121 abnormal VNG; PHH, Di kiannaness, abnormal VNG. COMPARISON: None. TECHNIQUE: Multi planar, multi sequence imaging was performed through the brain. Specialized thin s equences were obtained through the internal auditory canals. Pre-and post gadolinium sequences were obtained. MR contrast: IV Contrast: 6.5 cc Gadavist FINDINGS: The morejon-white junctions, ventricular system, and cisterns appear unremarkable. No abnormal signal within the brain parenchyma.. Midline structures show no abnormality. Diffusion-weighted imaging show s no evidence of restricted diffusion. The susceptibility weighted images do not reveal any evidence for micro-hemorrhage. The bone marrow signal is within normal limits. Paranasal sinuses and mastoid air cells: Mild scattered paranasal sinus disease. Visualized orbits: Orbital contents are intact. After administration of gadolinium, no abnormal enhancement is seen. The internal auditory canal sequences demonstrate no significant irregularity. The 7th cranial nerve s, 8 cranial nerves, and cerebellar pontine angles appear unremarkable. After the administration elaine olinium, no abnormal enhancement is seen within the internal auditory canals. Vascular loop: None. IMPRESSION: No evidence of intracranial mass nor acute/subacute CVA. No evidence of internal auditory canal abnormality. No abnormal signal in the brain parenchyma..
== END | disposition home or self-care (01) ==
LOC: RADMRIMAIN 06:59
PROVIDERS: ATTEND Otolaryngology
DX: R42 Dizziness and giddiness (principal); R94.121 Abnormal vestibular function study
CPT/HCPCS: 70553; A9585

== ENCOUNTER → 2023-11-12 | Outpatient (CLI) | payer BC ==
--- NOTE | 2023-11-12 08:05 | US ---
EXAMINATION TYPE: US abdomen complete DATE OF EXAM: 11/12/2023 COMPARISON: NONE CLINICAL INDICATION: Female, 33 years old with history of R10.9 UNSPECIFIED ABDOMINAL PAIN; Pt states chest feels "heavy" TECHNIQUE: Multiple sonographic images of the abdomen are obtained. FINDINGS: EXAM MEASUREMENTS: Liver Length: 16.0 cm Gallbladder Wall: 0.2 cm CBD: 0.4 cm Spleen: 10.5 cm Right Kidney: 11.1 x 3.4 x 5.8 cm Left Kidney: 10.7 x 4.6 x 5.1 cm POT PRESS OPERATOR NOTES: Pancreas: wnl Liver: Small, simple cyst right lateral lobe= 1.5 x 1.0 x 1.3 cm, otherwise appeared wnl Gallbladder: wnl Evidence for sonographic Adams's sign: No CBD: wnl Spleen: wnl Right Kidney: wnl Left Kidney: wnl Upper IVC: wnl Abd Aorta: wnl The liver is homogenous. The intrahepatic portion of the IVC and proximal abdominal aorta are within normal limits. There is no evidence of cholelithiasis. Common bile duct is unremarkable. The visu alized portions of the pancreas are homogenous. The spleen is unremarkable. Kidneys are symmetric a nd free of hydronephrosis. No renal lesions are seen. IMPRESSION: Simple hepatic cyst. Otherwise unremarkable study.
== END | disposition home or self-care (01) ==
LOC: RADUSWWP 07:25
PROVIDERS: ATTEND Internal Medicine Geriatric Medicine
DX: K76.89 Other specified diseases of liver (principal)
CPT/HCPCS: 76700

== ENCOUNTER → 2024-02-21 | Outpatient (CLI) | payer BC ==
--- NOTE | 2024-02-21 17:12 | MR ---
EXAMINATION TYPE: MR lumbar spine wo con DATE OF EXAM: 02/21/2024 COMPARISON: Lumbar spine radiograph 11/14/2022, no prior MRI available for comparison. HISTORY: Low back pain into right side since Oct 2023 TECHNIQUE: Multiplanar, multisequence images of the lumbar spine were acquired without IV contrast. FINDINGS: The lumbar vertebral bodies do have preserved heights. Straightening of the normal lumbar lordosis. No spondylolisthesis. Mild levocurvature of the thoracolumbar spine with apex at T12-L1. Di sc desiccation is present at L3-L4 and L4-L5. The conus medullaris and the distal spinal cord do apoorva ear unremarkable with regards to their signal intensity and morphology. L1-L2: No significant disc pathology is identified. The spinal canal and neural foramen are patent. L2-L3: No significant disc pathology is identified. The spinal canal and neural foramen are patent. L3-L4: A disc broad-based bulge is identified with associated enlargement of the facet joints. Annul ar fissure identified posteriorly. The spinal canal remains patent. Neural canals are patent bilatera lly. L4-L5: A disc broad-based bulge is identified with associated enlargement of the facet joints. Annul ar fissure identified posteriorly. The spinal canal remains patent. Neural canals are patent bilatera lly. L5-S1: No significant disc pathology is identified. The spinal canal and neural foramen are patent Other significant findings: None. IMPRESSION: 1. No definitive evidence for disc herniation or significant spinal canal stenosis. 2. Minimal disc degeneration with mild facet arthropathy at L3-L4 and L4-L5. Annular fissures at the se levels. If prior imaging could be made available, comparison could be made.
== END | disposition home or self-care (01) ==
LOC: RADMRIMAIN 15:39
PROVIDERS: ATTEND Physical Medicine & Rehabilitation
DX: M43.17 Spondylolisthesis, lumbosacral region (principal); M41.26 Other idiopathic scoliosis, lumbar region; M47.816 Spondylosis without myelopathy or radiculopathy, lumbar region; M51.36 Other intervertebral disc degeneration, lumbar region
CPT/HCPCS: 72148

== ENCOUNTER 2024-06-26 06:32 | Day surgery (SDC) | payer BC ==
[2024-06-26 07:04] VITALS: TEMP 97.8
[2024-06-26] MEDS: IV FLUID CONTINUATION 1,000 ML IV ONE ×2 (07:04→07:19)
[2024-06-26] MEDS: LACTATED RINGERS 1,000 ML IV SCH (07:04)
[2024-06-26] MEDS ORDERED: PROPOFOL 10 MG/ML 20 ML VIAL IV ONE (07:10)
[2024-06-26] MEDS ORDERED: LIDOCAINE 1% INJ 10MG/ML (20 ML MDV) ONE (07:10)
--- NOTE | 2024-06-26 07:21 | P.PCN ---
Date of Procedure: 06/26/24 Procedure(s) Performed: BRIEF HISTORY: Patient is a 34-year-old, pleasant, white female scheduled for an upper endoscopy as a part evaluation of lungs and history of GERD. Presented Protonix 40 mg daily. PROCEDURE PERFORMED: Esophagogastroduodenoscopy with biopsy. PREOPERATIVE DIAGNOSIS: Longstanding history of GERD. IV sedation per anesthesia. PROCEDURE: After informed consent was obtained, the patient was brought into the endoscopy unit. IV sedation was administered by Anesthesia under continuous monitoring. Initially the Olympus GIF-140 video endoscope was inserted into the mouth. Esophagus intubated without any difficulty. It was gradually advanced into the stomach and duodenum and carefully examined. The bulb and the second part of the duodenum appeared normal. The scope at this time was withdrawn to the stomach, adequately insufflated with air, and upon careful examination, mucosa of the antrum and mid gastritis and biopsies were done from this area. Mucosa, body, cardia and the fundus appeared normal. The scope was then withdrawn into the esophagus. Small sliding-type hiatal hernia noted. The GE junction was located at 37 cm from the incisors. The esophagus appeared normal. There were no erosions or ulcerations seen and the patient tolerated the procedure well. IMPRESSION: 1. Mild antral gastritis. 2. No evidence of esophagitis or peptic ulcer disease. . Small hiatal hernia RECOMMENDATIONS: The findings of this examination were discussed with the patient as well as her family. She was advised to follow the biopsy results. Continue with Protonix 40 mg daily and follow antireflux measures.. Use antacids as needed.
[2024-06-26 07:32] VITALS: RESP 18
[2024-06-26 07:51] VITALS: BP 115/76; PULSE 68
== END 2024-06-26 08:03 | disposition home or self-care (01) ==
LOC: ORWHC2ENDO 06:32
PROVIDERS: ATTEND Internal Medicine Gastroenterology
DX: K29.50 Unspecified chronic gastritis without bleeding (principal); B96.81 Helicobacter pylori [H. pylori] as the cause of diseases classified elsewhere; K21.9 Gastro-esophageal reflux disease without esophagitis; K44.9 Diaphragmatic hernia without obstruction or gangrene; F41.9 Anxiety disorder, unspecified; Z79.899 Other long term (current) drug therapy
CPT/HCPCS: 81025; 88305; 88342; 43239; J2003; J2704

== ENCOUNTER 2024-07-06 07:18 | Day surgery (SDC) | payer BC ==
[2024-07-02 14:05] VITALS: BMI 24.2
[2024-07-06] MEDS: IV FLUID CONTINUATION 1,000 ML IV ONE (07:32)
[2024-07-06 07:44] VITALS: BP 124/72; PULSE 82; RESP 16; TEMP 98.1
[2024-07-06] MEDS: SODIUM CHLORIDE 0.9% 1,000 ML IV SCH (07:46)
--- NOTE | 2024-07-06 12:03 | P.EPPROC ---
- EP Procedure Note Electrophysiology Procedure Note: Diagnosis Recurrent presyncope Twelve-lead EKG Sinus rhythm normal [place] normal QRS normal ST segments normal QT interval Tilt table test Baseline blood pressure 132/67 mmHg, baseline heart rate 73 beats minute Patient was tilted upright on maculas 70 degrees per protocol While there was no significant change in her blood pressure, there was an immediate increase in her heart rate her heart rate reached greater than 100 beats a minute within the first 10 minutes and remained elevated The patient felt nauseated, felt dizzy Lightheaded but no loss of consciousness Impression Normal twelve-lead EKG Orthostatic intolerance without any secondary neurocardiogenic phenomena
== END 2024-07-06 08:59 | disposition home or self-care (01) ==
LOC: CATHEP 07:18
PROVIDERS: ATTEND Internal Medicine Clinical Cardiac Electrophysiology
DX: R55 Syncope and collapse (principal); R07.9 Chest pain, unspecified; R00.2 Palpitations; Z88.0 Allergy status to penicillin; Z88.1 Allergy status to other antibiotic agents; Z88.8 Allergy status to other drugs, medicaments and biological substances; Z79.899 Other long term (current) drug therapy
CPT/HCPCS: 81025; 93660

== ENCOUNTER → 2024-08-31 | Outpatient (CLI) | payer BC | END | disposition home or self-care (01) | LOC: LABWHC1 14:53 | PROVIDERS: ATTEND Family Medicine | DX: D64.9 Anemia, unspecified (principal); R53.83 Other fatigue | CPT/HCPCS: 36415; 80053; 82248; 83540; 83550; 85025; 85652; 86140 ==

== ENCOUNTER → 2024-09-01 | Outpatient (CLI) | payer BC ==
[2024-09-02 02:52] LABS: Basophils # (A) 0.04 X 10*3/uL (0.00-0.10); Basophils % (A) 0.6 %; Eosinophils # (A) 0.23 X 10*3/uL (0.04-0.35); Eosinophils % (A) 3.4 %; HCT 38.2 % (37.2-46.3); HGB 11.8 g/dL (12.0-15.0); Lymphocytes # (A) 1.55 X 10*3/uL (0.90-5.00); Lymphocytes % (A) 22.6 %; MCH 26.9 pg (27.0-32.0); MCHC 30.9 g/dL (32.0-37.0); Mean Platelet Volume 9.7 FL (9.5-12.2); Monocytes # (A) 0.42 X 10*3/uL (0.20-1.00); Monocytes % (A) 6.1 %; NRBC Per 100 WBC 0 X 10*3/uL (0.00-0.01); Neutrophils % (A) 67.2 %; Platelet Count 370 X 10*3/uL (140-440); RBC 4.39 X 10*6/uL (4.10-5.20); RDW 13.1 % (11.5-14.5); WBC 6.85 X 10*3/uL (4.50-10.00)
[2024-09-02 03:43] LABS: % Iron Saturation 11.82 (12.00-45.00)
== END | disposition home or self-care (01) ==
LOC: LABWHC1 16:23
PROVIDERS: ATTEND Family Medicine
DX: D64.9 Anemia, unspecified (principal); R53.83 Other fatigue
CPT/HCPCS: 36415; 83540; 83550; 85025

== ENCOUNTER → 2025-03-01 | Outpatient (CLI) | payer BC ==
--- NOTE | 2025-03-01 07:57 | CT ---
EXAMINATION TYPE: CT soft tissue neck w con DATE OF EXAM: 03/01/2025 7:46 AM COMPARISON: None. CLINICAL INDICATION: Female, 35 years old with history of R59.0 LOCALIZED ENLARGED LYMPH NODES; PHH. TECHNIQUE: Standard enhanced CT of the neck. Axial sections with coronal and sagittal reformats were obtained. Contrast used:100 ml mL of Isovue 300 with IV Contrast, CT DLP: 286 mGycm, Automated exposure control for dose reduction was used. FINDINGS: Visualized intracranial structures and mastoid air cells appear clear. There is some streak artifact projecting over the globes. Trace mucosal thickening sphenoid sinuses and left maxillary sinus. Parotid glands are atrophic. Submandibular glands slightly small as well. Thyroid gland appears [employer]. Nasopharynx appears clear. Mild to moderate hypertrophy of the bilateral palatine tonsils. No discrete enhancing mass is seen. P unctate 3 mm calcification in the right suggesting sequela of prior infection. Mild lingual tonsillar hypertrophy. Epiglottis and prevertebral soft tissues are satisfactory. Gliotic and subglottic structures as well as the tracheal column appear clear. Mild emphysematous change in the visualized upper lungs. No cervical adenopathy or suspicious neck masses clearly identified. Scattered small lymph nodes are present on both sides of the upper neck. Bones: Reversal of the normal cervical lordosis. IMPRESSION: 1. No suspicious adenopathy or neck mass is identified. The exam can be reviewed with directed attent ion if there is persistent clinical concern. 2. [id number] bilateral palatine tonsillar hypertrophy. 3. Mild mucosal thickening sphenoid sinuses and left maxillary sinus. [facility], Workstation: [email or web address], 03/01/2025 7:54 AM
== END | disposition home or self-care (01) ==
LOC: RADCTMAIN 07:16
PROVIDERS: ATTEND Psychiatry & Neurology Neurology
DX: J34.89 Other specified disorders of nose and nasal sinuses (principal); R59.0 Localized enlarged lymph nodes; J35.1 Hypertrophy of tonsils
CPT/HCPCS: 70491; Q9967

== ENCOUNTER 2025-03-11 18:17 | Emergency (ER) | payer BC ==
[2025-03-11 18:27] VITALS: RESP 18
[2025-03-11] MEDS: KETOROLAC 15 MG/ML 1 ML VIAL IVP STA (19:39)
[2025-03-11 19:43] LABS: Basophils # (A) 0.04 10*3/uL (0.00-0.10); Basophils % (A) 0.5 %; Eosinophils # (A) 0.10 10*3/uL (0.04-0.35); Eosinophils % (A) 1.1 %; HCT 33.6 % (37.2-46.3); HGB 11.3 g/dL (12.0-15.0); Lymphocytes # (A) 1.72 10*3/uL (0.90-5.00); Lymphocytes % (A) 19.4 %; MCH 28.0 pg (27.0-32.0); MCHC 33.6 g/dL (32.0-37.0); MCV 83.2 fL (80.0-97.0); Monocytes # (A) 0.68 10*3/uL (0.20-1.00); Monocytes % (A) 7.7 %; Neutrophils # (A) 6.29 10*3/uL (1.80-7.70); Neutrophils % (A) 71.1 %; Platelet Count 317 10*3/uL (140-440); RBC 4.04 10*6/uL (4.10-5.20); RDW 13.0 % (11.5-14.5); WBC 8.85 10*3/uL (4.50-10.00)
[2025-03-11] MEDS: DEXAMETHASONE SOD PHOSPHATE 10 MG/ML 1 ML VIAL IVP STA (19:43)
[2025-03-11 20:25] LABS: ALT 11 U/L (4-34); AST 20 U/L (14-36); African American GFR (CKD) >90 (>60 ml/min/1.73 sqM); Albumin 4.3 g/dL (3.5-5.0); Alkaline Phosphatase 61 U/L (38-126); Anion Gap 8 mmol/L; Blood Urea Nitrogen 14 mg/dL (7-17); Calcium 9.5 mg/dL (8.4-10.2); Carbon Dioxide 27 mmol/L (22-30); Chloride 103 mmol/L (98-107); Glucose 104 mg/dL (74-99); Non-African American GFR(CKD) >90 (>60 ml/min/1.73 sqM); Potassium 4.5 mmol/L (3.5-5.1); Sodium 138 mmol/L (137-145); Total Protein 7.0 g/dL (6.3-8.2)
--- NOTE | 2025-03-11 20:33 | XR ---
EXAMINATION TYPE: XR elbow complete LT DATE OF EXAM: 03/11/2025 7:23 PM COMPARISON: None CLINICAL INDICATION: Female, 35 years old with history of bursitis; PHH, pain TECHNIQUE: XR elbow complete LT; elbow was examined in AP, lateral, and oblique projections. FINDINGS: No evidence of any acute osseous pathology, joint dislocation, or joint effusion is present . There is mild soft tissue swelling suggested along the posterior aspect of elbow. IMPRESSION: No evidence of acute fracture or dislocation. Mild soft tissue swelling of the posterior aspect of el bow. [facility], , 03/11/2025 8:30 PM
--- NOTE | 2025-03-11 21:21 | ED ---
General Adult HPI - General Chief complaint: Skin/Abscess/Foreign Body Stated complaint: L arm swelling Time Seen by Provider: 03/11/25 18:35 Source: patient Mode of arrival: ambulatory Limitations: no limitations - History of Present Illness Initial comments: 35-year-old female presenting with chief complaint of left elbow pain swelling and redness. Symptoms started 3 days ago, she was seen at urgent care and started on Keflex and Bactrim and was also given a steroid shot. She reports that yesterday she had improvement in her symptoms but today the symptoms worsened. No fever. No bleeding or discharge from the area. Denies any injury or trauma. At her job she does do a lot of typing. No numbness or tingling. She can fully extend and bend the elbow though it is difficult to extend due to the swelling - Related Data Home Medications Medication Instructions Recorded Confirmed Fluticasone Nasal Stark [Flonase 1 - 2 spr EA NOSTRIL BID PRN 06/26/23 07/02/24 Nasal Stark] LORazepam [Ativan] 0.5 mg PO BID PRN 06/23/24 07/02/24 Vit D (Unk) 1 tab PO DAILY 06/23/24 07/02/24 Previous Rx's Medication Instructions Recorded Pantoprazole Sodium [Protonix] 20 mg PO DAILY #10 tab 06/26/23 Allergies Allergy/AdvReac Type Severity Reaction Status Date / Time amoxicillin [From Augmentin] AdvReac Diarrhea Verified 03/11/25 18:27 clavulanic acid AdvReac Diarrhea Verified 03/11/25 18:27 [From Augmentin] Review of Systems ROS Statement: Those systems with pertinent positive or pertinent negative responses have been documented in the HPI. ROS Other: All systems not noted in ROS Statement are negative. Past Medical History Past Medical History: GERD/Reflux Additional Past Medical History / Comment(s): palpitations per cardiology non threatening. History of Any Multi-Drug Resistant Organisms: None Reported Past Surgical History: No Surgical Hx Reported Additional Past Surgical History / Comment(s): [place] tooth extraction Past Anesthesia/Blood Transfusion Reactions: No Reported Reaction Past Psychological History: Anxiety, Depression Smoking Status: Never smoker Past Alcohol Use History: Occasional Past Drug Use History: None Reported - Past Family History Father Family Medical History: Hypertension Mother Family Medical History: Hyperlipidemia General Exam Limitations: no limitations General appearance: alert, in no apparent distress Head exam: Present: atraumatic, normocephalic, normal inspection Eye exam: Present: normal appearance, EOMI Neck exam: Present: normal inspection. Absent: meningismus Respiratory exam: Absent: respiratory distress Cardiovascular Exam: Present: regular rate Left Elbow exam: Present: full ROM, tenderness, swelling, erythema Vascular: Present: normal capillary refill Neurological exam: Present: alert, oriented X3 Psychiatric exam: Present: normal affect, normal mood Course Vital Signs 03/11/25 18:23 Temperature 98.5 F Pulse Rate 76 Respiratory 18 Rate Blood Pressure 135/83 O2 Sat by Pulse 100 Oximetry Medical Decision Making - Medical Decision Making Was pt. sent in by a medical professional or institution (, PA, DIRECTOR OF CORPORATE COMMUNICATIONS, urgent care, hospital, or halfway...) When possible be specific @ -No Did you speak to anyone other than the patient for history (EMS, parent, family, police, friend...)? What history was obtained from this source @ -No Did you review nursing and triage notes (agree or disagree)? Why? @ -I reviewed and agree with nursing and triage notes Were old charts reviewed (outside hosp., previous admission, EMS record, old EKG, old radiological studies, urgent care reports/EKG's, halfway records)? Report findings @ -No old charts were reviewed Differential Diagnosis (chest pain, altered mental status, abdominal pain women, abdominal pain men, vaginal bleeding, weakness, fever, dyspnea, syncope, h eadache, dizziness, GI bleed, back pain, seizure, CVA, palpatations, mental health, musculoskeletal)? @ -Differential Musculoskeletal Muscular strain, contusion, ligament sprain, fracture, arthritis, septic arthritis, bursitis, cellulitis, muscle spasm, nerve compression, DVT, arterial occlusion, herpes zoster, electrolyte abnormality, tumor.... This is not meant to be in all inclusive list EKG interpreted by me (3pts min.). @ -As above X-rays interpreted by me (1pt min.). @ -X-ray shows no evidence of acute fracture or dislocation. Mild soft tissue swelling in the posterior aspect of the elbow CT interpreted by me (1pt min.). @ -None done U/S interpreted by me (1pt. min.). @ -None done What testing was considered but not performed or refused? (CT, X-rays, U/S, labs)? Why? @ -None What meds were considered but not given or refused? Why? @ -None Did you discuss the management of the patient with other professionals (professionals i.e. , PA, DIRECTOR OF CORPORATE COMMUNICATIONS, lab, RT, psych nurse, manager social, desk sergeant, teacher, correctional probation officer, child welfare caseworker)? Give summary @ -No Was smoking cessation discussed for >3mins.? @ -No Was critical care preformed (if so, how long)? @ -No Were there social determinants of health that impacted care today? How? (Homelessness, low income, unemployed, alcoholism, drug addiction, transportation, low edu. Level, literacy, decrease access to med. care, [facility] [facility], re hab)? @ -No Was there de-escalation of care discussed even if they declined (Discuss DNR or withdrawal of care, Hospice)? DNR status @ -No What co-morbidities impacted this encounter? (DM, HTN, Smoking, COPD, CAD, Cancer, CVA, ARF, Chemo, Hep., AIDS, mental health diagnosis, sleep apnea, morbid obesity)? @ -None Was patient admitted / discharged? Hospital course, mention meds given and route, prescriptions, significant lab abnormalities, going to OR and other pertinent info. @ -35-year-old female presenting with chief complaint of left elbow pain redness and swelling. She was placed on Keflex and Bactrim by urgent care 3 days ago, saw improvement yesterday symptoms worse today. No fever. Full range of motion and neurovascularly intact. No leukocytosis. CRP 1.5. X-ray shows soft tissue swelling with no other acute osseous process. Patient is educated on today's findings. Symptoms most likely due to bursitis. She is given a dose of clindamycin IV while here and instructed to continue her Bactrim and Keflex. Instructed to rest, ice, compress, and elevate the elbow to help with symptoms. Follow-up with PCP. Report back to ER with any new or worsening symptoms. Discussed return parameters and answered all questions. Patient conveyed verbal understanding and agreed to the plan. I discussed this case in detail with my attending Dr. Alvarez Undiagnosed new problem with uncertain prognosis? @ -No Drug Therapy requiring intensive monitoring for toxicity (Heparin, Nitro, Insulin, Cardizem)? @ -No Were any procedures done? @ -No Diagnosis/symptom? @ -Bursitis Acute, or Chronic, or Acute on Chronic? @ -Acute Uncomplicated (without systemic symptoms) or Complicated (systemic symptoms)? @ -Uncomplicated Side effects of treatment? @ -No Exacerbation, Progression, or Severe Exacerbation? @ -No Poses a threat to life or bodily function? How? (Chest pain, USA, CT, pneumonia, PE, COPD, DKA, ARF, appy, cholecystitis, CVA, Diverticulitis, Homicidal, Suicidal, threat to staff... and all critical care pts) @ -Unlikely - Lab Data Result diagrams: 03/11/25 19:29 03/11/25 19:29 Lab Results 03/11/25 03/11/25 Range/Units 19:29 19:29 WBC 8.85 (4.50-10.00) 10*3/uL RBC 4.04 L (4.10-5.20) 10*6/uL Hgb 11.3 L (12.0-15.0) g/dL Hct 33.6 L (37.2-46.3) % MCV 83.2 (80.0-97.0) fL MCH 28.0 (27.0-32.0) pg MCHC 33.6 (32.0-37.0) g/dL Plt Count 317 (140-440) 10*3/uL MPV 8.9 L (9.5-12.2) fL Immature Gran % (Auto) 0.2 % Neutrophils % 71.1 % Lymphocytes % 19.4 % Monocytes % 7.7 % Eosinophils % 1.1 % Basophils % 0.5 % Immature Gran # 0.02 (0.00-0.04) 10*3/uL Neutrophils # 6.29 (1.80-7.70) 10*3/uL Lymphocytes # 1.72 (0.90-5.00) 10*3/uL Monocytes # 0.68 (0.20-1.00) 10*3/uL Eosinophils # 0.10 (0.04-0.35) 10*3/uL Basophils # 0.04 (0.00-0.10) 10*3/uL Sodium 138 (137-145) mmol/L Potassium 4.5 (3.5-5.1) mmol/L Chloride 103 (98-107) mmol/L Carbon Dioxide 27 (22-30) mmol/L Anion Gap 8 mmol/L BUN 14 (7-17) mg/dL Creatinine 0.66 (0.52-1.04) mg/dL Est GFR (CKD-EPI)AfAm >90 (>60 ml/min/1.73 sqM) Est GFR (CKD-EPI)NonAf >90 (>60 ml/min/1.73 sqM) Glucose 104 H (74-99) mg/dL Calcium 9.5 (8.4-10.2) mg/dL Total Bilirubin 0.4 (0.2-1.3) mg/dL AST 20 (14-36) U/L ALT 11 (4-34) U/L Alkaline Phosphatase 61 (38-126) U/L C-Reactive Protein 1.5 H (<1.0) mg/dL Total Protein 7.0 (6.3-8.2) g/dL Albumin 4.3 (3.5-5.0) g/dL Disposition Clinical Impression: Bursitis Disposition: HOME SELF-CARE Condition: Good Instructions (If sedation given, give patient instructions): Elbow Bursitis (ED) Additional Instructions: Follow-up with your PCP. Report back to ER with any new or worsening symptoms. Take Motrin and Tylenol as needed for pain control. Rest, ice, compress, elevate the elbow. Continue taking your antibiotics as prescribed Is patient prescribed a controlled substance at d/c from ED?: No Referrals: Veda Suarez MD [Primary Care Provider] - 1-2 days Time of Disposition: 21:21
[2025-03-11] MEDS: CLINDAMYCIN 600 MG in DEXTROSE 5% IN WATER 50 ML IVPB STA (21:40)
[2025-03-11 23:02] VITALS: BP 128/81; PULSE 69; TEMP 98.2
== END 2025-03-11 23:02 | disposition home or self-care (01) ==
LOC: EC 18:17
DX: M70.32 Other bursitis of elbow, left elbow (principal); Z88.0 Allergy status to penicillin; Z88.1 Allergy status to other antibiotic agents
CPT/HCPCS: 36415; 80053; 85025; 86140; 73080; 99284; 96365; 96375; J1100; J1885; J0736